=== PATIENT | female | born 1940 | race Caucasian/White ===

== ENCOUNTER → 2017-03-26 | Outpatient (CLI) | payer OTHER ==
--- NOTE | 2017-03-26 15:20 | RAD ---
HISTORY: Dyspnea, COPD Study: Chest two-view Comparison: None Findings: The heart is within normal limits in size. The cj are normal. The lungs are hyperinflated but free of acute alveolar infiltrates. No pleural effusions are identified. The bony thorax is unremarkable . IMPRESSION: Lungs hyperinflated but clear, consistent with COPD Reported By:
== END ==
LOC: RAD 14:49
PROVIDERS: ATTEND Nurse Practitioner Family
DX: R06.09 Other forms of dyspnea (principal); J44.9 Chronic obstructive pulmonary disease, unspecified
CPT/HCPCS: 71020

== ENCOUNTER 2020-09-17 23:48 | Inpatient (IN) ==
[2020-09-18 00:10] VITALS: BMI 21.7
--- NOTE | 2020-09-18 00:50 | DR.FEVERAD ---
HPI Time seen Time Seen by Provider: 09/18/20 00:50 PCP Primary Care Physician: SAMANTA KEMP HPI Comment HPI Comment: PATIENT IS 79YR OLD FEMALE IN ER WITH FEVER, GENERALIZED WEAKNESS AND ANOREXIA TIMES FEW DAYS. WORSE TODAY. HISTORY LUNG CA UNDERGOING CHEMOTHERAPY. LANT TAKEN 09/05/2020. PATIENT IS NOT TAKING HER MEDS FOR PAST FEW WEEKS. PATIENT ALSO HAD LEFT BREAST CA, S/P LT BREAST REMOVAL IN 1991. HAVE ALSO HAD DIARRHEA. SON SAID PATIENT IS NOT EATING. Complaints/Symptoms Chief Complaint Doctor Comments: GENERALIZED WEANESS, FEVER AND ANOREXIA TIMES FEW DAYS. Chief Complaint:: PTS FAMILY REPORTS THAT TODAY PT IS WEAK AND NOT EATING AND IS RUNNING A FEVER AT HOME THAT WAS 103.5 AXILLARY. PT IS ON CHEMO WITH HER LAST CHEMO BEING 2 WEEKS AGO ON 09/05/2020. Self Treatment fo Chief Complaint: NONE COVID-19 Coronavirus risk:travel/contact w/high risk person: No Has patient experienced Coronavirus symptoms: Yes Coronavirus symptoms experienced: Fever Source History Provided: Patient and Family Member Mode of Arrival Mode of Arrival: Wheelchair Timing Onset of Chief Complaint: 09/17/20 Came on: Suddenly Duration Duration: Constant Duration: Days Severity Fever Severity/Quality: greater than 102 F Context Recent: denies Contact exposure to (PATIENT UNDER GOING CHEMOTHRAPY FOR LUNG CANCER.) Symptoms: Fever, Chills, Cough and SOB History of: Immunosuppression Modifying factors Modifying factors: Nothing Associated signs and symptoms Associated signs and symptoms: Myalgia, Abdominal pain and Nausea PMH PMH Past Medical History: Yes Past Medical History: Arthritis, COPD, Coronary Artery Disease, Dyslipidemia, GERD and Hypertension Past Medical History Comment: LUNG CA 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)- IS ON CHEMO HX OF BREAST CA WITH LEFT BREAST REMOVAL IN 1991 Past Surgical History: Yes Surgical History: Angioplasty/Stents Past Surgical History Comment: RIGHT CHEST WALL PORTACATH FOR CHEMO HALF OF THYROID REMOVED LEFT BREAST REMOVAL IN 1991 Family History History of Family Medical Conditions: Yes Family Medical History: Cancer, [place], Coronary Artery Disease and Hypertension Social History Does patient currently use any type of tobacco product: No Have you used tobacco products in the last 12 months: No Type of Tobacco Use: None Does any household member use tobacco: No Alcohol Use: None Do you use any recreational Drugs:: No Lives With: Alone Lives Where: Home Travel Risk Coronavirus risk:travel/contact w/high risk person: No Has patient experienced Coronavirus symptoms: Yes Coronavirus symptoms experienced: Fever Infectious screening In the last 2 months have you had wt loss of >10#?: NO Have you had fever, night sweats or hemotysis?: No Have you traveled outside the country in the last 6 months?: No Isolation: Droplet ROS Review of Systems Constitutional: See HPI, Chills, Fever, Malaise, Weakness, Fatigue and Loss of Appetite Eyes: No Symptoms Reported and See HPI; negative Blurred Vision and Diplopia ENTM: Nose Congestion; negative See HPI and Nose Discharge Respiratoy: See HPI, Moist Cough and Short of Breath; negative Wheezing Cardiovascular: No Symptoms Reported and See HPI Gastrointestinal/Abdominal: No Symptoms Reported, See HPI, Abdominal Pain, Diarrhea and Nausea Genitourinary: No Symptoms Reported and See HPI; negative Dysuria and Hematuria Neurological: See HPI and Weakness; negative Headache and Dizziness Musculoskeletal: See HPI, Back Pain and Muscle Pain Integumentary: No Symptoms Reported and See HPI; negative Change in Color, Rash and Juandice Hematologic/Lymphatic: No Symptoms Reported and See HPI; negative Easy Bruising Endocrine: No Symptoms Reported and See HPI; negative Increased Thirst and Increased Urine Psychiatric: No Symptoms Reported and See HPI All Other Systems: Reviewed and Negative PE Vital Signs Vitals: Temperature 99.8 F Pulse Rate 75 Respiratory Rate 18 Blood Pressure 92/48 O2 Sat by Pulse Oximetry 98 General Limitations: No Limitations General Appearance: Alert and In No Apparent Distress Head Head Exam: Normal Inspection and Atraumatic Eyes Eye exam: Normal Appearance and PERRL; negative Scleral Icterus and Conjunctival Injection ENT ENT Exam: Normal Exam, Normal Oropharynx, Normal External Ear Exam and TM's Normal Bilaterally External Ear Exam: negative Mastoid Tenderness Nose Exam: negative Normal Nose Exam Mouth Exam: negative Normal Inspection, Lip Swelling and Tongue Swelling Teeth Exam: Dental Caries; negative Dental Tenderness # and Gingival Swelling Throat Exam: negative Tonsillar Erythema, Tonsillomegaly and Tonsillar Exudate Neck Neck Exam: Normal Inspection and Trachea Midline; negative Tenderness and Lymphadenopathy Respiratory Respiratory Exam: Normal Lung Sounds Bilat; negative Accessory Muscle Use, Chest Wall Tenderness and Respiratory Distress Respiratory Exam: Bilateral: Wheezing and Bilateral: Rhonchi and Lower: Wheezing and Lower: Rhonchi Cardiovascular Cardiovascular Exam: Regular Rate, Normal Rhythm and Normal Heart Sounds; negative Systolic Murmur and Diastolic Murmur Abdominal Exam Abdominal Exam: Normal Inspection, Normal Bowel Sounds and Soft; negative Tenderness Abdominal Tenderness: Diffuse and Moderate Extremities Extremities Exam: Normal Inspection and Normal Capillary Refill; negative Tenderness, Edema and Calf Tenderness Back Back Exam: Normal Inspection and Paraspinal Tenderness; negative (R) CVA Tenderness and (L) CVA Tenderness Neurologic Neurological Exam: Alert, Oriented X3 and CN II-XII Intact; negative Motor Sensory Deficit Psychiatric Psychiatric Exam: Normal Affect and Normal Mood Skin Skin Exam: Warm, Dry, Intact and Normal Color COURSE Treatment Treatment: TORADOL 15MG IV. NS 1L IV BOLUS, LEVAQUIN 500MG IVPB. VANCOMYCIN 1GM IVBP. NS 1L IV BOLUS THEN 125CC/HR. BP LOW AFTER FLUID RESUSCITATION. PLACE ON LEVOPHED. BP IMPROVED, Consultation Consultation Comments: DISCUSS PATIENT WITH ONCOLOGIST DR. MAYA OJEDA. PATIENT TO BE HOSPITALIZE HERE [facility]. SON WANTS PATIENT TO BE ADMITTED HERE. DR. LACY, [employer] DR AND PATIENTS PCP WILL ADMIT PATIENT. Education/Counseling Education/Counseling: Patient and Family Educated On: Diagnosis ROR Labs Reviewed Laboratory Results Reviewed?: Yes Result Diagrams: 09/18/20 01:05 09/18/20 01:05 Laboratory: WBC 2.3 X10^3/uL (3.6-10.0) L 09/18/20 01:05 RBC 2.72 X10^6/uL (3.5-5.4) L 09/18/20 01:05 Hgb 8.1 g/dL (12.0-16.0) L 09/18/20 01:05 Hct 23.5 % (36.0-47.0) L 09/18/20 01:05 MCV 86.5 fL (80.0-100.0) 09/18/20 01:05 MCH 29.6 pg (27.0-34.0) 09/18/20 01:05 MCHC 34.3 g/dL (33.0-35.0) 09/18/20 01:05 RDW 16.4 % (11.6-16.5) 09/18/20 01:05 Plt Count 58 X10^3/uL (150.0-450.0) L 09/18/20 01:05 Plt Count Comment Decreased (ADEQUATE) A 09/18/20 01:05 MPV 8.0 fL (7.4-11.0) 09/18/20 01:05 Neut % (Auto) 79.6 % (42.0-75.0) H 09/18/20 01:05 Lymph % (Auto) 10.7 % (21.0-51.0) L 09/18/20 01:05 [place] % (Auto) 9.4 % (0.0-13.0) 09/18/20 01:05 Eos % (Auto) 0.1 % (0.9-2.9) L 09/18/20 01:05 Baso % (Auto) 0.2 % (0.2-1.0) 09/18/20 01:05 Neut # (Auto) 1.8 x10^3/uL (2.2-4.8) L 09/18/20 01:05 Lymph # (Auto) 0.2 X10^3/uL (1.3-2.9) L 09/18/20 01:05 [place] # (Auto) 0.2 x10^3/uL (0.3-0.8) L 09/18/20 01:05 Eos # (Auto) 0.0 x10^3/uL (0.0-0.2) 09/18/20 01:05 Baso # (Auto) 0.0 X10^3/uL (0.0-0.1) 09/18/20 01:05 Absolute Nucleated RBC 0.1 /100WBC 09/18/20 01:05 Total Counted 100 09/18/20 01:05 Neutrophils % (Manual) 86 % (39-76) H 09/18/20 01:05 Lymphocytes % (Manual) 14 % (13-43) 09/18/20 01:05 Plt Morphology Comment Normal (NORMAL) 09/18/20 01:05 RBC Morphology Normal (NORMAL) 09/18/20 01:05 PT 15.8 SECONDS (11.8-14.3) 09/18/20 02:50 INR Target Range - 09/18/20 02:50 INR 1.29 (0.8-1.3) 09/18/20 02:50 APTT 39.4 SECONDS (22.9-36.5) H 09/18/20 02:50 PTT Comment - 09/18/20 02:50 Sodium 137 mmol/L (136-145) 09/18/20 01:05 Corrected Sodium TNP 09/18/20 01:05 Potassium 3.8 mmol/L (3.5-5.1) 09/18/20 01:05 Chloride 101 mmol/L (98-107) 09/18/20 01:05 Carbon Dioxide 24.4 mmol/L (21-32) 09/18/20 01:05 BUN 14 mg/dL (7-18) 09/18/20 01:05 Creatinine 1.09 mg/dL (0.55-1.02) H 09/18/20 01:05 Est GFR (MDRD) Af Amer > 60 (>60) 09/18/20 01:05 Est GFR (MDRD) Non-Af 52 (>60) L 09/18/20 01:05 Glucose 100 mg/dL (65-99) H 09/18/20 01:05 Lactic Acid 0.8 mmol/L (0.4-2.0) 09/18/20 02:50 Calcium 8.5 mg/dL (8.5-10.1) 09/18/20 01:05 Corrected Calcium 9.1 mg/dL (8.5-10.1) 09/18/20 01:05 Total Bilirubin 0.70 mg/dL (0.2-1.0) 09/18/20 01:05 AST 217 Units/L (15-37) H 09/18/20 01:05 ALT 300 Units/L (12-78) H 09/18/20 01:05 Alkaline Phosphatase 165 Units/L (46-116) H 09/18/20 01:05 Total Protein 6.9 g/dL (6.4-8.2) 09/18/20 01:05 Albumin 3.3 g/dL (3.4-5.0) L 09/18/20 01:05 Globulin 3.6 g/dL (2.5-4.5) 09/18/20 01:05 Albumin/Globulin Ratio 0.9 Ratio (1.1-2.1) L 09/18/20 01:05 Specimen Type Catherized urine 09/18/20 02:26 Urine Color Yellow (YELLOW) 09/18/20 02:26 Urine Appearance Cloudy (CLEAR) 09/18/20 02:26 Urine pH 6.0 (5.0 - 8.0) 09/18/20 02:26 Ur Specific [place] 1.025 (1.000-1.030) 09/18/20 02:26 Urine Protein 3+ (NEGATIVE) 09/18/20 02:26 Urine Glucose (UA) Negative (NEGATIVE) 09/18/20 02:26 Urine Ketones Negative (NEGATIVE) 09/18/20 02:26 Urine Occult Blood 4+ (NEGATIVE) 09/18/20 02:26 Urine Nitrite Negative (NEGATIVE) 09/18/20 02:26 Urine Bilirubin 1+ (NEGATIVE) 09/18/20 02:26 Urine Urobilinogen 1+ (NORMAL) 09/18/20 02:26 Ur Leukocyte Esterase 3+ (NEGATIVE) 09/18/20 02:26 Urine RBC 5-10 /HPF (0-3) A 09/18/20 02:26 Urine WBC Tntc /HPF (0-5) A 09/18/20 02:26 Ur Squamous Epith Cells Few /HPF (NEGATIVE) 09/18/20 02:26 Urine Bacteria 2+ /HPF (NEGATIVE) 09/18/20 02:26 Ur Culture Indicated? Yes/culture set up 09/18/20 02:26 SARS-CoV-2 (PCR) Negative (NEGATIVE) 09/18/20 04:31 XRAY XRAY Interpreted by: Radiologist (REPORT NOTED AND DISCUSSED WITH PATIENT.) and Self Opioid Opioid Risk Tool Age (Cory box if 16-45): No History of Preadolescent Sexual Abuse: No Total: 0 Total Score Risk Category: Low Risk Copyright: Dilan FLORES predicting aberrant behaviors Diagnosis Discharge Problem: Pancytopenia, Acute dehydration, Sepsis secondary to UTI Neutropenia Qualifiers: Neutropenia type: due to infection Qualified Code(s): D70.3 - Neutropenia due to infection Hypotension Qualifiers: Hypotension type: unspecified hypotension type Qualified Code(s): I95.9 - Hypotension, unspecified Hypothermia Qualifiers: Encounter type: initial encounter Qualified Code(s): T68.XXXA - Hypothermia, initial encounter Instructions Forms: Precautions for COVID19 Patient Portal Social Distancing
[2020-09-18 01:36] LABS: BASOPHILS % (AUTO) 0.2 % (0.2-1.0); EOSINOPHILS % (AUTO) 0.1 % (0.9-2.9); HEMATOCRIT 23.5 % (36.0-47.0); HEMOGLOBIN 8.1 g/dL (12.0-16.0); LYMPHOCYTES # (AUTO) 0.2 X10^3/uL (1.3-2.9); LYMPHOCYTES % (AUTO) 10.7 % (21.0-51.0); MEAN CORPUSCULAR HEMOGLOBIN 29.6 pg (27.0-34.0); MEAN CORPUSCULAR HGB CONC 34.3 g/dL (33.0-35.0); MEAN CORPUSCULAR VOLUME 86.5 fL (80.0-100.0); MONOCYTES # (AUTO) 0.2 x10^3/uL (0.3-0.8); MONOCYTES % (AUTO) 9.4 % (0.0-13.0); NEUTROPHILS # (AUTO) 1.8 x10^3/uL (2.2-4.8); NEUTROPHILS % (AUTO) 79.6 % (42.0-75.0); PLATELET COUNT 58 X10^3/uL (150.0-450.0); RED BLOOD COUNT 2.72 X10^6/uL (3.5-5.4); RED CELL DISTRIBUTION WIDTH 16.4 % (11.6-16.5); WHITE BLOOD COUNT 2.3 X10^3/uL (3.6-10.0)
[2020-09-18 01:44] LABS: ALANINE AMINOTRANSFERASE 300 Units/L (12-78); ALBUMIN 3.3 g/dL (3.4-5.0); ALKALINE PHOSPHATASE 165 Units/L (46-116); ASPARTATE AMINO TRANSFERASE 217 Units/L (15-37); BLOOD UREA NITROGEN 14 mg/dL (7-18); CALCIUM 8.5 mg/dL (8.5-10.1); CARBON DIOXIDE 24.4 mmol/L (21-32); CHLORIDE 101 mmol/L (98-107); COR CA(FOR HYPOALB) 9.1 mg/dL (8.5-10.1); CREATININE 1.09 mg/dL (0.55-1.02); SODIUM 137 mmol/L (136-145); TOTAL PROTEIN 6.9 g/dL (6.4-8.2); eGFR NON BLACK RACES 52 (>60)
[2020-09-18] MEDS ORDERED: TORADOL 15 MG VIAL IVP ONE (02:07)
[2020-09-18] MEDS ORDERED: TORADOL 15 MG VIAL ONE (02:08)
--- NOTE | 2020-09-18 02:10 | RAD ---
HISTORYPTS FAMILY REPORTS THAT TODAY PT IS WEAK AND NOT EATING AND IS RUNNING A FEVER AT HOME THAT WAS 103.5 AXILLARY. PT IS ON CHEMO WITH HER LAST CHEMO BEING 2 WEEKS AGO ON 09/05/2020. PTS FAMILY (NIECE) STATES THAT PT HAS NOT BEEN TAKING H TRUNCATED ...STUDYCHEST, 1 [id number] trachea is midline. The cardiac silhouette is mildly enlarged. The right Port-A-Cath tip in SVC. Ill-defined mass anterior the right hilum again noted. The lungs are clear of acute consolidation no pleural effusion or pneumothorax.. The lungs are clear without focal infiltrate or effusion. The bony thorax is unremarkable.IMPRESSIONMild cardiomegalyIll-defined mass anterior to the right hilum again noted.Electronically signed by: Jacob Mcfarlane (Sep 18, 2020 02:09:15)
[2020-09-18 03:27] LABS: BILIRUBIN,URINE 1+ (NEGATIVE); BLOOD/HEMOGLOBIN,URINE 4+ (NEGATIVE); GLUCOSE, URINE NEGATIVE (NEGATIVE); KETONES,URINE NEGATIVE (NEGATIVE); LEUKOCYTE ESTERASE ,URINE 3+ (NEGATIVE); NITRITES,URINE NEGATIVE (NEGATIVE); PROTEIN,URINE 3+ (NEGATIVE); UROBILINOGEN,URINE 1+ (NORMAL)
[2020-09-18 03:33] LABS: APPEARANCE,URINE CLOUDY (CLEAR); COLOR,URINE YELLOW (YELLOW)
[2020-09-18 03:34] LABS: BACTERIA,URINE 2+ /HPF (NEGATIVE); SQUAMOUS EPITHELIAL CELL,UR FEW /HPF (NEGATIVE)
[2020-09-18] MEDS ORDERED: NS 1000 ML 1,000 ML IV ONE ×2 (03:47→05:32)
[2020-09-18] MEDS ORDERED: NS 1000 ML 1,000 ML ONE ×3 (03:50→05:32)
[2020-09-18] MEDS ORDERED: LEVAQUIN PREMIX IV 750 MG 0 MG/0 ML BAG IV ONE (03:51)
[2020-09-18] MEDS: LEVAQUIN PREMIX IV 750 MG 750 MG/150 ML BAG IV ONE ×2 (04:01→04:17)
[2020-09-18] MEDS ORDERED: LEVAQUIN PREMIX IV 500 MG 500 MG/100 ML BAG IV ONE ×2 (04:14→04:16)
[2020-09-18] MEDS ORDERED: ZOSYN VIAL 4.5 GRAMS IV ONE (04:14)
[2020-09-18] MEDS ORDERED: NS 100 ML IV + SPIKE MINIBAG* 0 ML IV ONE (04:15)
[2020-09-18] MEDS ORDERED: ZOSYN VIAL 4.5 GRAMS 4.5 G in NS 100 ML IV + SPIKE MINIBAG* 100 ML IV ONE (04:15)
[2020-09-18 04:35] LABS: PLATELET MORPHOLOGY COMMENT NORMAL (NORMAL)
[2020-09-18] MEDS: NS 1000 ML 1,000 ML IV SCH ×2 (05:11→15:06)
[2020-09-18] MEDS ORDERED: LEVOPHED INJ ONE (06:05)
[2020-09-18] MEDS ORDERED: D5W 250 ML IV 250 ML IV ONE (06:06)
[2020-09-18] MEDS ORDERED: LEVOPHED INJ 8 MG in D5W 250 ML IV 242 ML IV PRN (06:10)
[2020-09-18] MEDS ORDERED: VANCOMYCIN HCL ONE (07:34)
[2020-09-18] MEDS ORDERED: NS 250 ML IV 250 ML IV ONE (07:34)
[2020-09-18] MEDS: VANCOMYCIN IV *PREMIX 1 G/200 ML BAG 1 G/200 ML PIGGYBACK IV SCH ×3 (07:41→21:31)
[2020-09-18] MEDS ORDERED: PHARMACY CONSULT - VANCOMYCIN XX SCH (08:00)
[2020-09-18] MEDS ORDERED: ZOFRAN INJ 4 MG VIAL IVP PRN (08:25)
[2020-09-18] MEDS ORDERED: DUONEB 0.5 MG/3 MG (3 mL) NEB SCH (09:00)
[2020-09-18] MEDS ORDERED: PULMICORT NEB TX 0.5 MG NEB SCH (09:00)
[2020-09-18] MEDS ORDERED: PATIENT'S HOME MEDICATION (Fluticasone-Umeclidin-Vilanter [Trelegy Ellipta] 100-62.5-25 mc IN SCH (09:00)
[2020-09-18] MEDS: FOLIC ACID TAB 1 MG PO SCH (10:46)
[2020-09-18] MEDS: PLAVIX PO SCH (10:46)
[2020-09-18] MEDS: PROTONIX TAB 40 MG PO SCH ×2 (10:46→21:32)
[2020-09-18] MEDS: VITAMIN D3 125 mcg (5,000 UNITS) PO SCH (10:47)
[2020-09-18] MEDS: VITAMIN C PO SCH (10:47)
--- NOTE | 2020-09-18 11:22 | DR.FEVERAD ---
HPI Time seen Time Seen by Provider: 09/18/20 00:50 PCP Primary Care Physician: SAMANTA KEMP Complaints/Symptoms Chief Complaint:: PTS FAMILY REPORTS THAT TODAY PT IS WEAK AND NOT EATING AND IS RUNNING A FEVER AT HOME THAT WAS 103.5 AXILLARY. PT IS ON CHEMO WITH HER LAST CHEMO BEING 2 WEEKS AGO ON 09/05/2020. 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)- IS ON CHEMO HX OF BREAST CA WITH LEFT BREAST REMOVAL IN 1991 Past Surgical History: Yes Surgical History: Angioplasty/Stents Past Surgical History Comment: RIGHT CHEST WALL PORTACATH FOR CHEMO HALF OF THYROID REMOVED LEFT BREAST REMOVAL IN 1991 Family History History of Family Medical Conditions: Yes Family Medical History: Cancer, [place], Coronary Artery Disease and Hypertension Social History Does patient currently use any type of tobacco product: No Have you used tobacco products in the last 12 months: No Type of Tobacco Use: None Does any household member use tobacco: No Alcohol Use: None Do you use any recreational Drugs:: No Lives With: Alone Lives Where: Home Travel Risk Coronavirus risk:travel/contact w/high risk person: No Has patient experienced Coronavirus symptoms: Yes Coronavirus symptoms experienced: Fever Infectious screening In the last 2 months have you had wt loss of >10#?: NO Have you had fever, night sweats or hemotysis?: No Have you traveled outside the country in the last 6 months?: No Isolation: Droplet PE Vital Signs Vitals: Temperature 99.8 F Pulse Rate 75 Respiratory Rate 18 Blood Pressure 92/48 O2 Sat by Pulse Oximetry 98 ROR Labs Reviewed Result Diagrams: 09/18/20 01:05 09/18/20 01:05 Laboratory: WBC 2.3 X10^3/uL (3.6-10.0) L 09/18/20 01:05 RBC 2.72 X10^6/uL (3.5-5.4) L 09/18/20 01:05 Hgb 8.1 g/dL (12.0-16.0) L 09/18/20 01:05 Hct 23.5 % (36.0-47.0) L 09/18/20 01:05 MCV 86.5 fL (80.0-100.0) 09/18/20 01:05 MCH 29.6 pg (27.0-34.0) 09/18/20 01:05 MCHC 34.3 g/dL (33.0-35.0) 09/18/20 01:05 RDW 16.4 % (11.6-16.5) 09/18/20 01:05 Plt Count 58 X10^3/uL (150.0-450.0) L 09/18/20 01:05 Plt Count Comment Decreased (ADEQUATE) A 09/18/20 01:05 MPV 8.0 fL (7.4-11.0) 09/18/20 01:05 Neut % (Auto) 79.6 % (42.0-75.0) H 09/18/20 01:05 Lymph % (Auto) 10.7 % (21.0-51.0) L 09/18/20 01:05 [place] % (Auto) 9.4 % (0.0-13.0) 09/18/20 01:05 Eos % (Auto) 0.1 % (0.9-2.9) L 09/18/20 01:05 Baso % (Auto) 0.2 % (0.2-1.0) 09/18/20 01:05 Neut # (Auto) 1.8 x10^3/uL (2.2-4.8) L 09/18/20 01:05 Lymph # (Auto) 0.2 X10^3/uL (1.3-2.9) L 09/18/20 01:05 [place] # (Auto) 0.2 x10^3/uL (0.3-0.8) L 09/18/20 01:05 Eos # (Auto) 0.0 x10^3/uL (0.0-0.2) 09/18/20 01:05 Baso # (Auto) 0.0 X10^3/uL (0.0-0.1) 09/18/20 01:05 Absolute Nucleated RBC 0.1 /100WBC 09/18/20 01:05 Total Counted 100 09/18/20 01:05 Neutrophils % (Manual) 86 % (39-76) H 09/18/20 01:05 Lymphocytes % (Manual) 14 % (13-43) 09/18/20 01:05 Plt Morphology Comment Normal (NORMAL) 09/18/20 01:05 RBC Morphology Normal (NORMAL) 09/18/20 01:05 PT 15.8 SECONDS (11.8-14.3) 09/18/20 02:50 INR Target Range - 09/18/20 02:50 INR 1.29 (0.8-1.3) 09/18/20 02:50 APTT 39.4 SECONDS (22.9-36.5) H 09/18/20 02:50 PTT Comment - 09/18/20 02:50 Sodium 137 mmol/L (136-145) 09/18/20 01:05 Corrected Sodium TNP 09/18/20 01:05 Potassium 3.8 mmol/L (3.5-5.1) 09/18/20 01:05 Chloride 101 mmol/L (98-107) 09/18/20 01:05 Carbon Dioxide 24.4 mmol/L (21-32) 09/18/20 01:05 BUN 14 mg/dL (7-18) 09/18/20 01:05 Creatinine 1.09 mg/dL (0.55-1.02) H 09/18/20 01:05 Est GFR (MDRD) Af Amer > 60 (>60) 09/18/20 01:05 Est GFR (MDRD) Non-Af 52 (>60) L 09/18/20 01:05 Glucose 100 mg/dL (65-99) H 09/18/20 01:05 Lactic Acid 0.8 mmol/L (0.4-2.0) 09/18/20 02:50 Calcium 8.5 mg/dL (8.5-10.1) 09/18/20 01:05 Corrected Calcium 9.1 mg/dL (8.5-10.1) 09/18/20 01:05 Total Bilirubin 0.70 mg/dL (0.2-1.0) 09/18/20 01:05 AST 217 Units/L (15-37) H 09/18/20 01:05 ALT 300 Units/L (12-78) H 09/18/20 01:05 Alkaline Phosphatase 165 Units/L (46-116) H 09/18/20 01:05 Total Protein 6.9 g/dL (6.4-8.2) 09/18/20 01:05 Albumin 3.3 g/dL (3.4-5.0) L 09/18/20 01:05 Globulin 3.6 g/dL (2.5-4.5) 09/18/20 01:05 Albumin/Globulin Ratio 0.9 Ratio (1.1-2.1) L 09/18/20 01:05 Specimen Type Catherized urine 09/18/20 02:26 Urine Color Yellow (YELLOW) 09/18/20 02:26 Urine Appearance Cloudy (CLEAR) 09/18/20 02:26 Urine pH 6.0 (5.0 - 8.0) 09/18/20 02:26 Ur Specific [place] 1.025 (1.000-1.030) 09/18/20 02:26 Urine Protein 3+ (NEGATIVE) 09/18/20 02:26 Urine Glucose (UA) Negative (NEGATIVE) 09/18/20 02:26 Urine Ketones Negative (NEGATIVE) 09/18/20 02:26 Urine Occult Blood 4+ (NEGATIVE) 09/18/20 02:26 Urine Nitrite Negative (NEGATIVE) 09/18/20 02:26 Urine Bilirubin 1+ (NEGATIVE) 09/18/20 02:26 Urine Urobilinogen 1+ (NORMAL) 09/18/20 02:26 Ur Leukocyte Esterase 3+ (NEGATIVE) 09/18/20 02:26 Urine RBC 5-10 /HPF (0-3) A 09/18/20 02:26 Urine WBC Tntc /HPF (0-5) A 09/18/20 02:26 Ur Squamous Epith Cells Few /HPF (NEGATIVE) 09/18/20 02:26 Urine Bacteria 2+ /HPF (NEGATIVE) 09/18/20 02:26 Ur Culture Indicated? Yes/culture set up 09/18/20 02:26 SARS-CoV-2 (PCR) Negative (NEGATIVE) 09/18/20 04:31 Opioid Opioid Risk Tool Age (Cory box if 16-45): No History of Preadolescent Sexual Abuse: No Total: 0 Total Score Risk Category: Low Risk Copyright: Dilan FLORES predicting aberrant behaviors Diagnosis Discharge Problem: Pancytopenia, Acute dehydration, Sepsis secondary to UTI Neutropenia Qualifiers: Neutropenia type: due to infection Qualified Code(s): D70.3 - Neutropenia due to infection Hypotension Qualifiers: Hypotension type: unspecified hypotension type Qualified Code(s): I95.9 - Hypotension, unspecified Hypothermia Qualifiers: Encounter type: initial encounter Qualified Code(s): T68.XXXA - Hypothermia, initial encounter Instructions Forms: Precautions for COVID19 Patient Portal Social Distancing
[2020-09-18] MEDS ORDERED: CONSULT PHARMACY - ANTIBIOTIC XX SCH (16:00)
[2020-09-18] MEDS: TOBRAMYCIN SULFATE 80 MG in NS 100 ML IV 98 ML IV SCH (16:41)
--- NOTE | 2020-09-18 18:40 | DR.H&P ---
H&P - History & Physical for Day of: H&P Date: 09/18/20 - Chief Complaint Chief Complaint: FEVER, WEAKNESS, DEHYDRATION - History of Present Illness History of Present Illness: PT IS 79 WF ER ADMISSION WITH CO FEVER, WEAKNESS, DEHYDRATION. PT HAS PMH OF CAD, COPD AND LUNG CANCER. PT IS CURRENTLY ON CHEMOTHERAPY. PT WAS FEBRILE IN ER. PT DENIES ANY KNOWN COVID. - Past Medical History Past Medical History: Coronary Artery Disease, Hypertension, Dyslipidemia, COPD, GERD, Arthritis - Past Surgical History Surgical History: Angioplasty/Stents - Family History Family Medical History: Cancer, [place], Coronary Artery Disease, Hypertension - Social History Does patient currently use any type of tobacco product: No Have you used tobacco products in the last 12 months: No Type of Tobacco Use: None How many years tobacco product used: 30 Does any household member use tobacco: No Alcohol Use: None Drug Use: None - Medications Home Medications: Sulfa (Sulfonamide Antibiotics) [SULFA] Allergy (Verified 09/18/20 00:10) Penicillins Adverse Reaction (Verified 09/18/20 00:10) CONTINUE taking the following medications amlodipine 2.5 mg PO DAILY 09/18/20 [History] ascorbic acid (vitamin C) 1 g PO DAILY 09/18/20 [History] cholecalciferol (vitamin D3) 125 mcg PO DAILY 09/18/20 [History] clopidogrel 75 mg PO DAILY 09/18/20 [History] [id number] [Trelegy Ellipta] 1 inh INHALATION BID 09/18/20 [History] folic acid 1 mg PO DAILY 09/18/20 [History] ondansetron HCl 8 mg PO Q8H PRN 09/18/20 [History] pantoprazole 40 mg PO BID 09/18/20 [History] prochlorperazine maleate 10 mg PO Q8H PRN 09/18/20 [History] simvastatin 20 mg PO DAILY 09/18/20 [History] - Review of Systems Constitutional: Fever, Chills, Weakness, Malaise Eyes: No Symptoms Reported ENT: No Symptoms Reported Respiratory: Cough, Shortness of Breath, Wheezing Cardiovascular: No Symptoms Reported Gastrointestinal: Nausea Genitourinary: No Symptoms Reported Musculoskeletal: No Symptoms Reported Skin: No Symptoms Reported Neurological: Weakness - Physical Exam Vital Signs: Temperature 100 F Pulse Rate [Left Radial] 100 Pulse Rate 100 Respiratory Rate 20 Blood Pressure [Right Arm] 121/62 Blood Pressure 141/61 O2 Sat by Pulse Oximetry 92 Oriented: Normal Eyes: Normal Ear: Normal Nose: Normal Throat: Normal Respiratory: Rhonchi Throughout, RLL Diminished, LLL Diminished Cardiovascular: Normal : Dysuria Auscultation: Bowel Sounds: Normal Palpation: Normal Tenderness: Normal Skin: Decreased [place] Musculoskeletal: Back:Thoracic, Back:Lumbar Psychiatric: Anxiety Mood Description: Anxious Affect: Anxious Speech Pattern: Clear, Appropriate - Assessment/Plan (1) Sepsis Status: Acute Plan: ADMIT, REVERSE ISOLATION DUE TO CHEMO THERAPY PT. BC AND UC ON ADMISSION, CARDIAC MONITORING. GRIMALDO CATH STRICT I&OS. IV ABTX THERAPY, CXR ON ADMISSION, RESP THERAPY. COVID 19 ON ADMISSION (2) Fever Status: Acute (3) COPD (chronic obstructive pulmonary disease) Status: Acute (4) CAD (coronary artery disease) Status: Acute (5) Neutropenia Qualifiers: Neutropenia type: due to infection Qualified Code(s): D70.3 - Neutropenia due to infection Status: Acute (6) Pancytopenia Status: Acute (7) Hypotension Qualifiers: Hypotension type: unspecified hypotension type Qualified Code(s): I95.9 - Hypotension, unspecified Status: Acute - Allergies Allergies/Adverse Reactions: Allergies Allergy/AdvReac Type Severity Reaction Status Date / Time Sulfa (Sulfonamide Allergy Verified 09/18/20 00:10 Antibiotics) [SULFA] Penicillins AdvReac Verified 09/18/20 00:10
[2020-09-18] MEDS: ZOCOR TAB 20 MG PO SCH (21:17)
[2020-09-19] MEDS: TYLENOL 325 MG TAB PO PRN ×2 (00:15→12:50)
[2020-09-19] MEDS: TOBRAMYCIN SULFATE 80 MG in NS 100 ML IV 98 ML IV SCH ×4 (00:30→21:27)
[2020-09-19] MEDS: NS 1000 ML 1,000 ML IV SCH ×3 (03:03→18:34)
[2020-09-19 06:52] LABS: BASOPHILS % (AUTO) 0.2 % (0.2-1.0); EOSINOPHILS % (AUTO) 2.9 % (0.9-2.9); HEMATOCRIT 20.5 % (36.0-47.0); LYMPHOCYTES # (AUTO) 0.3 X10^3/uL (1.3-2.9); LYMPHOCYTES % (AUTO) 27.3 % (21.0-51.0); MEAN CORPUSCULAR HEMOGLOBIN 29.2 pg (27.0-34.0); MEAN CORPUSCULAR VOLUME 88.4 fL (80.0-100.0); MEAN PLATELET VOLUME 8.2 fL (7.4-11.0); MONOCYTES # (AUTO) 0.3 x10^3/uL (0.3-0.8); MONOCYTES % (AUTO) 22.6 % (0.0-13.0); NEUTROPHILS # (AUTO) 0.5 x10^3/uL (2.2-4.8); PLATELET COUNT 46 X10^3/uL (150.0-450.0); RED BLOOD COUNT 2.32 X10^6/uL (3.5-5.4)
[2020-09-19 07:04] LABS: ALANINE AMINOTRANSFERASE 149 Units/L (12-78); ALBUMIN 2.4 g/dL (3.4-5.0); ALKALINE PHOSPHATASE 102 Units/L (46-116); ASPARTATE AMINO TRANSFERASE 79 Units/L (15-37); BLOOD UREA NITROGEN 8 mg/dL (7-18); CALCIUM 8.1 mg/dL (8.5-10.1); CARBON DIOXIDE 20.7 mmol/L (21-32); CHLORIDE 109 mmol/L (98-107); CKMB % 0.4 % (<4); COR CA(FOR HYPOALB) 9.4 mg/dL (8.5-10.1); CREATINE KINASE 247 Units/L (26-192); CREATINE KINASE MB < 1.0 ng/mL (0-4.0); CREATININE 0.81 mg/dL (0.55-1.02); MAGNESIUM 1.6 mg/dL (1.7-2.9); SODIUM 141 mmol/L (136-145); TOTAL PROTEIN 5.4 g/dL (6.4-8.2); TROPONIN I 0.17 ng/mL (0-1.5); eGFR NON BLACK RACES > 60 (>60)
[2020-09-19 07:17] LABS: WHITE BLOOD COUNT 1.1 X10^3/uL (3.6-10.0)
[2020-09-19 07:18] LABS: HEMOGLOBIN 6.8 g/dL (12.0-16.0)
[2020-09-19 07:44] LABS: BAND NEUTROPHILS % 2 % (0-10)
[2020-09-19 07:45] LABS: PLATELET MORPHOLOGY COMMENT NORMAL (NORMAL)
[2020-09-19] MEDS ORDERED: POTASSIUM CHLORIDE LIQ 20 MEQ UDC PO PRN (08:05)
[2020-09-19] MEDS ORDERED: KLOR-CON PO PRN (08:05)
[2020-09-19] MEDS ORDERED: MICRO K EXTEN CAP 10 MEQ PO PRN (08:05)
[2020-09-19] MEDS: MAGNESIUM SULFATE 1 GRAM/100 mL PREMIX 1 GM/100 ML BAG IV PRN ×2 (09:00→10:15)
[2020-09-19] MEDS: FOLIC ACID TAB 1 MG PO SCH (09:19)
[2020-09-19] MEDS: PLAVIX PO SCH (09:21)
[2020-09-19] MEDS: K-DUR TAB 20 MEQ PO PRN (09:22)
[2020-09-19] MEDS: PROTONIX TAB 40 MG PO SCH ×2 (09:23→21:26)
[2020-09-19] MEDS: VITAMIN D3 125 mcg (5,000 UNITS) PO SCH (09:24)
[2020-09-19] MEDS: VITAMIN C PO SCH (09:24)
[2020-09-19] MEDS ORDERED: DUONEB 0.5 MG/3 MG (3 mL) NEB SCH (11:00)
[2020-09-19] MEDS ORDERED: PULMICORT NEB TX 0.5 MG NEB SCH (11:00)
[2020-09-19] MEDS: LEVAQUIN PREMIX IV 500 MG 500 MG/100 ML BAG IV SCH (12:00)
[2020-09-19] MEDS ORDERED: PHARMACY COMMENT IV NR ×3 (12:30→20:30)
[2020-09-19 14:39] LABS: CREATININE 0.79 mg/dL (0.55-1.02)
[2020-09-19] MEDS: ZOCOR TAB 20 MG PO SCH (21:26)
[2020-09-20] MEDS: NS 1000 ML 1,000 ML IV SCH ×4 (05:34→23:14)
[2020-09-20] MEDS: TOBRAMYCIN SULFATE 80 MG in NS 100 ML IV 98 ML IV SCH ×4 (05:34→23:16)
[2020-09-20 06:33] LABS: BASOPHILS % (AUTO) 0.4 % (0.2-1.0); HEMATOCRIT 20.3 % (36.0-47.0); LYMPHOCYTES # (AUTO) 0.4 X10^3/uL (1.3-2.9); LYMPHOCYTES % (AUTO) 34.7 % (21.0-51.0); MEAN CORPUSCULAR HEMOGLOBIN 29.5 pg (27.0-34.0); MEAN CORPUSCULAR HGB CONC 34.3 g/dL (33.0-35.0); MEAN CORPUSCULAR VOLUME 86.1 fL (80.0-100.0); MONOCYTES # (AUTO) 0.3 x10^3/uL (0.3-0.8); NEUTROPHILS # (AUTO) 0.3 x10^3/uL (2.2-4.8); NEUTROPHILS % (AUTO) 31.9 % (42.0-75.0); PLATELET COUNT 81 X10^3/uL (150.0-450.0); RED BLOOD COUNT 2.36 X10^6/uL (3.5-5.4); RED CELL DISTRIBUTION WIDTH 16.7 % (11.6-16.5)
[2020-09-20 06:42] LABS: ALANINE AMINOTRANSFERASE 115 Units/L (12-78); ALBUMIN 2.5 g/dL (3.4-5.0); ALKALINE PHOSPHATASE 100 Units/L (46-116); ASPARTATE AMINO TRANSFERASE 54 Units/L (15-37); BLOOD UREA NITROGEN 6 mg/dL (7-18); CALCIUM 8.4 mg/dL (8.5-10.1); CARBON DIOXIDE 25.6 mmol/L (21-32); CHLORIDE 106 mmol/L (98-107); COR CA(FOR HYPOALB) 9.6 mg/dL (8.5-10.1); CREATININE 0.82 mg/dL (0.55-1.02); MAGNESIUM 1.6 mg/dL (1.7-2.9); SODIUM 141 mmol/L (136-145); TOTAL PROTEIN 5.7 g/dL (6.4-8.2); eGFR NON BLACK RACES > 60 (>60)
[2020-09-20 06:43] LABS: WHITE BLOOD COUNT 1.1 X10^3/uL (3.6-10.0)
[2020-09-20 07:25] LABS: PLATELET MORPHOLOGY COMMENT NORMAL (NORMAL)
[2020-09-20] MEDS: FOLIC ACID TAB 1 MG PO SCH (09:18)
[2020-09-20] MEDS: VITAMIN D3 125 mcg (5,000 UNITS) PO SCH (09:19)
[2020-09-20] MEDS: PLAVIX PO SCH (09:20)
[2020-09-20] MEDS: VITAMIN C PO SCH (09:20)
[2020-09-20] MEDS: PROTONIX TAB 40 MG PO SCH ×2 (09:20→21:15)
[2020-09-20] MEDS: LEVAQUIN PREMIX IV 500 MG 500 MG/100 ML BAG IV SCH (09:21)
--- NOTE | 2020-09-20 10:08 | RAD ---
HISTORYCAD, CHF, LUNG CA, breast cancerSTUDYCHEST x-ray, 1 VIEWCOMPARISONX-ray 09/18/2020FINDINGSRight Port-A-Cath terminates in the region of the mid SVC. There is persistent prominence of the right hilum. This is concerning for malignancy. Possible new small left pleural effusion. Heart is normal in size. No pneumothorax is seen. Probable COPD changes are present.IMPRESSIONPersistent prominence of the right hilum may be mass lesion.Possible new small left pleural effusion.Electronically signed by: Iraj Lamar (Sep 20, 2020 10:06:15)
[2020-09-20] MEDS: MAGNESIUM SULFATE 1 GRAM/100 mL PREMIX 1 GM/100 ML BAG IV PRN ×2 (11:47→13:31)
[2020-09-20 16:57] LABS: HEMATOCRIT 20.6 % (36.0-47.0)
[2020-09-20] MEDS: K-DUR TAB 20 MEQ PO PRN (18:12)
[2020-09-20] MEDS: ZOCOR TAB 20 MG PO SCH (21:15)
[2020-09-20] MEDS ORDERED: ROBITUSSIN DM ONE (21:48)
[2020-09-20] MEDS: ROBITUSSIN DM PO PRN (21:55)
[2020-09-20 22:00] LABS: CREATININE 0.88 mg/dL (0.55-1.02); TOBRAMYCIN,TROUGH 1.2 ug/mL (0-2)
[2020-09-21] MEDS: TOBRAMYCIN SULFATE 80 MG in NS 100 ML IV 98 ML IV SCH ×2 (05:56→13:08)
[2020-09-21 06:11] LABS: BASOPHILS % (AUTO) 0.4 % (0.2-1.0); EOSINOPHILS # (AUTO) 0.1 x10^3/uL (0.0-0.2); LYMPHOCYTES # (AUTO) 0.4 X10^3/uL (1.3-2.9); LYMPHOCYTES % (AUTO) 29.6 % (21.0-51.0); MEAN CORPUSCULAR HEMOGLOBIN 29.4 pg (27.0-34.0); MEAN CORPUSCULAR HGB CONC 33.8 g/dL (33.0-35.0); MEAN PLATELET VOLUME 7.9 fL (7.4-11.0); MONOCYTES # (AUTO) 0.5 x10^3/uL (0.3-0.8); MONOCYTES % (AUTO) 30.4 % (0.0-13.0); NEUTROPHILS # (AUTO) 0.5 x10^3/uL (2.2-4.8); NEUTROPHILS % (AUTO) 35.6 % (42.0-75.0); PLATELET COUNT 109 X10^3/uL (150.0-450.0); RED BLOOD COUNT 2.27 X10^6/uL (3.5-5.4); RED CELL DISTRIBUTION WIDTH 17.2 % (11.6-16.5)
--- NOTE | 2020-09-21 06:16 | RAD ---
HISTORYPLEURAL EFFUSIONSTUDYCHEST, 1 VIEWCOMPARISONOne day priorTECHNIQUEAP view of the chestFINDINGSRight chest wall port with tip in good position. Cardiac and mediastinal contours appear stable prominent right hilum. Patchy left medial base opacity. Suspect small pleural effusions. No pneumothorax. Stable left apical opacity.IMPRESSIONPatchy left medial base opacity may represent atelectasis or pneumonia. Blunted costophrenic sulci consistent with small pleural effusions. Stable left apical opacity. Stable prominent right hilum.Electronically signed by: Josh Jaquez (Sep 21, 2020 06:15:31)
[2020-09-21 06:17] LABS: ALANINE AMINOTRANSFERASE 89 Units/L (12-78); ALBUMIN 2.5 g/dL (3.4-5.0); ALKALINE PHOSPHATASE 93 Units/L (46-116); ASPARTATE AMINO TRANSFERASE 42 Units/L (15-37); BLOOD UREA NITROGEN 5 mg/dL (7-18); CALCIUM 8.5 mg/dL (8.5-10.1); CARBON DIOXIDE 25.8 mmol/L (21-32); CHLORIDE 107 mmol/L (98-107); COR CA(FOR HYPOALB) 9.7 mg/dL (8.5-10.1); CREATININE 0.73 mg/dL (0.55-1.02); MAGNESIUM 1.7 mg/dL (1.7-2.9); SODIUM 141 mmol/L (136-145); TOTAL PROTEIN 5.7 g/dL (6.4-8.2); eGFR NON BLACK RACES > 60 (>60)
[2020-09-21 06:29] LABS: WHITE BLOOD COUNT 1.5 X10^3/uL (3.6-10.0)
[2020-09-21 06:30] LABS: HEMOGLOBIN 6.7 g/dL (12.0-16.0)
[2020-09-21] MEDS: NS 1000 ML 1,000 ML IV SCH ×3 (06:30→21:13)
[2020-09-21 06:31] LABS: HEMATOCRIT 19.8 % (36.0-47.0)
[2020-09-21 06:48] LABS: PLATELET MORPHOLOGY COMMENT NORMAL (NORMAL)
[2020-09-21 06:49] LABS: ANISOCYTOSIS SLIGHT; HYPOCHROMASIA 1+
[2020-09-21] MEDS: VITAMIN D3 125 mcg (5,000 UNITS) PO SCH (08:39)
[2020-09-21] MEDS: FOLIC ACID TAB 1 MG PO SCH (08:39)
[2020-09-21] MEDS: PLAVIX PO SCH (08:39)
[2020-09-21] MEDS: PROTONIX TAB 40 MG PO SCH ×2 (08:40→20:58)
[2020-09-21] MEDS: LEVAQUIN PREMIX IV 500 MG 500 MG/100 ML BAG IV SCH (08:40)
[2020-09-21] MEDS: VITAMIN C PO SCH (08:40)
[2020-09-21 08:58] LABS: CKMB % 0.7 % (<4); CREATINE KINASE 137 Units/L (26-192); CREATINE KINASE MB < 1.0 ng/mL (0-4.0)
[2020-09-21] MEDS ORDERED: NS 250 ML IV 250 ML IV ONE (11:34)
[2020-09-21] MEDS: TYLENOL 325 MG TAB PO PRN (13:40)
[2020-09-21] MEDS ORDERED: NS 500 ML IV 0 ML IV ONE (14:07)
[2020-09-21 18:30] LABS: HEMATOCRIT 26.4 % (36.0-47.0); HEMOGLOBIN 8.8 g/dL (12.0-16.0)
[2020-09-21] MEDS: ZOCOR TAB 20 MG PO SCH (20:58)
[2020-09-21] MEDS: ROBITUSSIN DM PO PRN (23:19)
[2020-09-22] MEDS: NS 1000 ML 1,000 ML IV SCH ×2 (04:58→05:50)
[2020-09-22 06:22] LABS: BASOPHILS % (AUTO) 0.3 % (0.2-1.0); EOSINOPHILS # (AUTO) 0.1 x10^3/uL (0.0-0.2); EOSINOPHILS % (AUTO) 4.3 % (0.9-2.9); HEMOGLOBIN 8.9 g/dL (12.0-16.0); LYMPHOCYTES # (AUTO) 0.6 X10^3/uL (1.3-2.9); LYMPHOCYTES % (AUTO) 27.6 % (21.0-51.0); MEAN CORPUSCULAR HEMOGLOBIN 29.1 pg (27.0-34.0); MEAN CORPUSCULAR HGB CONC 34.1 g/dL (33.0-35.0); MEAN CORPUSCULAR VOLUME 85.5 fL (80.0-100.0); MEAN PLATELET VOLUME 7.6 fL (7.4-11.0); MONOCYTES # (AUTO) 0.5 x10^3/uL (0.3-0.8); MONOCYTES % (AUTO) 23.1 % (0.0-13.0); NEUTROPHILS % (AUTO) 44.7 % (42.0-75.0); PLATELET COUNT 152 X10^3/uL (150.0-450.0); RED BLOOD COUNT 3.04 X10^6/uL (3.5-5.4); RED CELL DISTRIBUTION WIDTH 15.9 % (11.6-16.5); WHITE BLOOD COUNT 2.3 X10^3/uL (3.6-10.0)
[2020-09-22 07:13] LABS: BAND NEUTROPHILS % 1 % (0-10); PLATELET MORPHOLOGY COMMENT NORMAL (NORMAL)
[2020-09-22 07:14] LABS: HYPOCHROMASIA SLIGHT
[2020-09-22 07:29] LABS: ALANINE AMINOTRANSFERASE 74 Units/L (12-78); ALBUMIN 2.6 g/dL (3.4-5.0); ALKALINE PHOSPHATASE 94 Units/L (46-116); ASPARTATE AMINO TRANSFERASE 37 Units/L (15-37); BLOOD UREA NITROGEN 4 mg/dL (7-18); CALCIUM 8.4 mg/dL (8.5-10.1); CARBON DIOXIDE 25.8 mmol/L (21-32); CHLORIDE 108 mmol/L (98-107); COR CA(FOR HYPOALB) 9.5 mg/dL (8.5-10.1); SODIUM 143 mmol/L (136-145); eGFR NON BLACK RACES > 60 (>60)
[2020-09-22] MEDS: PLAVIX PO SCH (09:31)
[2020-09-22] MEDS: VITAMIN D3 125 mcg (5,000 UNITS) PO SCH (09:31)
[2020-09-22] MEDS: VITAMIN C PO SCH (09:31)
[2020-09-22] MEDS: FOLIC ACID TAB 1 MG PO SCH (09:31)
[2020-09-22] MEDS: PROTONIX TAB 40 MG PO SCH (09:32)
[2020-09-22] MEDS: LEVAQUIN PREMIX IV 500 MG 500 MG/100 ML BAG IV SCH (09:32)
[2020-09-22 14:08] VITALS: BP 148/74
== END 2020-09-22 14:15 | disposition home or self-care (01) | DRG 871 ==
LOC: ER 23:54 → ICU 23:54 → OBSVTOIN 09-18 06:02 → MED/SURG 09-18 09:40
PROVIDERS: ADMIT Internal Medicine; ATTEND Internal Medicine
DX: C34.90 Malignant neoplasm of unspecified part of unspecified bronchus or lung; E86.0 Dehydration; N39.0 Urinary tract infection, site not specified; D70.3 Neutropenia due to infection; R26.89 Other abnormalities of gait and mobility; Z92.21 Personal history of antineoplastic chemotherapy; B96.29 Other Escherichia coli [E. coli] as the cause of diseases classified elsewhere; J44.9 Chronic obstructive pulmonary disease, unspecified; I95.89 Other hypotension; Z20.828 Contact with and (suspected) exposure to other viral communicable diseases; E78.2 Mixed hyperlipidemia; I10 Essential (primary) hypertension; D61.810 Antineoplastic chemotherapy induced pancytopenia; Z85.3 Personal history of malignant neoplasm of breast; D63.8 Anemia in other chronic diseases classified elsewhere; A41.51 Sepsis due to Escherichia coli [E. coli]

== ENCOUNTER 2021-03-09 18:59 | Inpatient (IN) ==
[2021-03-09] MEDS ORDERED: NS 1000 ML 1,000 ML IV ONE (19:49)
[2021-03-09] MEDS ORDERED: ROCEPHIN VIAL 1 GRAM 1 G in NS 100 ML IV + SPIKE MINIBAG* 100 ML IV ONE (19:51)
[2021-03-09] MEDS ORDERED: VANCOMYCIN IV *PREMIX 1 G/200 ML BAG 1 G/200 ML PIGGYBACK IV ONE ×2 (19:51→19:59)
[2021-03-09] MEDS ORDERED: ROCEPHIN VIAL 1 GRAM ONE (19:58)
[2021-03-09] MEDS ORDERED: NS 1000 ML 1,000 ML ONE (19:58)
[2021-03-09] MEDS ORDERED: NS 100 ML IV + SPIKE MINIBAG* 100 ML IV ONE (19:58)
--- NOTE | 2021-03-09 20:23 | DR.DIZZY ---
HPI Time seen Time Seen by Provider: 03/09/21 19:49 PCP Primary Care Physician: HPI Comment HPI Comment: Patient brought in by family with complaint of malaise, fever and diarrhea x 2 days. patient with h/o lung cancer and is on chemo. Last chemo was last week. Family states that patient usually doesn't feel well for the first few days after chemo, but usually recovers. Notes that this time, she has continued to feel ill. No known sick contacts. Family notes that patient had fever earlier of 102.7. Given anti-pyretic. Complaint Chief Complaint:: PT STATED SHE HAS FEVER, DEHYDRATION,AND DIARRHEA. Self Treatment fo Chief Complaint: TYLENOL 500MG 545 COVID-19 Coronavirus risk:travel/contact w/high risk person: No Has patient experienced Coronavirus symptoms: Yes Coronavirus symptoms experienced: Fever Source History Provided: Family Member Mode of Arrival Mode of Arrival: Wheelchair Timing Onset of Chief Complaint: 03/09/21 Context Stroke Symptoms: None PMH PMH Past Medical History: Yes Past Medical History: Arthritis, COPD, Coronary Artery Disease, Dyslipidemia, GERD and Hypertension Past Medical History Comment: LUNG CANCER Past Surgical History: Yes Surgical History: Angioplasty/Stents Past Surgical History Comment: KNEE AND PORT , LYMPNODE SURGERY Family History History of Family Medical Conditions: Yes Family Medical History: Cancer, [place], Coronary Artery Disease and Hypertension Social History Type of Tobacco Use: Cigarettes Do you use any recreational Drugs:: No Lives With: Family Lives Where: Home Travel Risk Coronavirus risk:travel/contact w/high risk person: No Has patient experienced Coronavirus symptoms: Yes Coronavirus symptoms experienced: Fever Infectious screening In the last 2 months have you had wt loss of >10#?: NO Have you had fever, night sweats or hemotysis?: No Have you traveled outside the country in the last 6 months?: No Isolation: Droplet ROS Review of Systems Constitutional: See HPI, Fever, Malaise and Weakness Gastrointestinal/Abdominal: Diarrhea All Other Systems: Reviewed and Negative PE Vital Signs Vitals: Temperature 98.2 F Pulse Rate 83 Respiratory Rate 18 Blood Pressure [Right Arm] 148/74 Blood Pressure 86/54 O2 Sat by Pulse Oximetry 96 General Limitations: No Limitations General Appearance: Alert and In No Apparent Distress Head Head Exam: Normal Inspection, Atraumatic and Normocephalic Eyes Eye exam: Normal Appearance and EOMI ENT ENT Exam: Normal Exam Neck Neck Exam: Normal Inspection and Trachea Midline Chest Chest Inspection: Normal Inspection Respiratory Respiratory Exam: Normal Lung Sounds Bilat Respiratory Exam: Bilateral: Clear to Auscultation Cardiovascular Cardiovascular Exam: Regular Rate, Normal Rhythm and Normal Heart Sounds Abdominal Exam Abdominal Exam: Normal Inspection, Normal Bowel Sounds and Soft Extremeties Extremities Exam: Normal Inspection Neurologic Neurological Exam: Alert and Oriented X3 Psychiatric Psychiatric Exam: Normal Affect and Normal Mood Skin Skin Exam: Warm, Dry and Intact COURSE Consultation Call Returned: 00:00 Consultation Comments: Spoke with Dr. Zamora who accepts aptient for admission ROR Labs Reviewed Laboratory Results Reviewed?: Yes Result Diagrams: 03/09/21 20:05 03/09/21 20:05 Laboratory: WBC 2.7 X10^3/uL (3.6-10.0) L 03/09/21 20:05 RBC 3.53 X10^6/uL (3.5-5.4) 03/09/21 20:05 Hgb 10.2 g/dL (12.0-16.0) L 03/09/21 20:05 Hct 31.5 % (36.0-47.0) L 03/09/21 20:05 MCV 89.2 fL (80.0-100.0) 03/09/21 20:05 MCH 28.9 pg (27.0-34.0) 03/09/21 20:05 MCHC 32.4 g/dL (33.0-35.0) L 03/09/21 20:05 RDW 18.4 % (11.6-16.5) H 03/09/21 20:05 Plt Count 266 X10^3/uL (150.0-450.0) 03/09/21 20:05 Plt Count Comment Adequate (ADEQUATE) 03/09/21 20:05 MPV 7.9 fL (7.4-11.0) 03/09/21 20:05 Neut % (Auto) 38.2 % (42.0-75.0) L 03/09/21 20:05 Lymph % (Auto) 18.9 % (21.0-51.0) L 03/09/21 20:05 [place] % (Auto) 42.4 % (0.0-13.0) H 03/09/21 20:05 Eos % (Auto) 0.0 % (0.9-2.9) L 03/09/21 20:05 Baso % (Auto) 0.5 % (0.2-1.0) 03/09/21 20:05 Neut # (Auto) 1.0 x10^3/uL (2.2-4.8) L 03/09/21 20:05 Lymph # (Auto) 0.5 X10^3/uL (1.3-2.9) L 03/09/21 20:05 [place] # (Auto) 1.2 x10^3/uL (0.3-0.8) H 03/09/21 20:05 Eos # (Auto) 0.0 x10^3/uL (0.0-0.2) 03/09/21 20:05 Baso # (Auto) 0.0 X10^3/uL (0.0-0.1) 03/09/21 20:05 Absolute Nucleated RBC 0.6 /100WBC 03/09/21 20:05 Total Counted 100 03/09/21 20:05 Neutrophils % (Manual) 43 % (39-76) 03/09/21 20:05 Lymphocytes % (Manual) 30 % (13-43) 03/09/21 20:05 Monocytes % (Manual) 22 % (4-9) H 03/09/21 20:05 Metamyelocytes % 2 03/09/21 20:05 Myelocytes % 3 03/09/21 20:05 Plt Morphology Comment Normal (NORMAL) 03/09/21 20:05 RBC Morphology Normal (NORMAL) 03/09/21 20:05 Sodium 136 mmol/L (136-145) 03/09/21 20:05 Corrected Sodium TNP 03/09/21 20:05 Potassium 3.8 mmol/L (3.5-5.1) 03/09/21 20:05 Chloride 100 mmol/L (98-107) 03/09/21 20:05 Carbon Dioxide 24.2 mmol/L (21-32) 03/09/21 20:05 BUN 16 mg/dL (7-18) 03/09/21 20:05 Creatinine 1.18 mg/dL (0.55-1.02) H 03/09/21 20:05 Est GFR (MDRD) Af Amer 57 (>60) L 03/09/21 20:05 Est GFR (MDRD) Non-Af 47 (>60) L 03/09/21 20:05 Glucose 86 mg/dL (65-99) 03/09/21 20:05 Lactic Acid 1.3 mmol/L (0.4-2.0) 03/09/21 20:05 Calcium 8.7 mg/dL (8.5-10.1) 03/09/21 20:05 Corrected Calcium 9.7 mg/dL (8.5-10.1) 03/09/21 20:05 Total Bilirubin 0.50 mg/dL (0.2-1.0) 03/09/21 20:05 AST 17 Units/L (15-37) 03/09/21 20:05 ALT 16 Units/L (12-78) 03/09/21 20:05 Alkaline Phosphatase 63 Units/L (46-116) 03/09/21 20:05 Total Protein 6.5 g/dL (6.4-8.2) 03/09/21 20:05 Albumin 2.8 g/dL (3.4-5.0) L 03/09/21 20:05 Globulin 3.7 g/dL (2.5-4.5) 03/09/21 20:05 Albumin/Globulin Ratio 0.8 Ratio (1.1-2.1) L 03/09/21 20:05 Influenza Type A Ag Negative-presumptive (NEGATIVE) 03/09/21 20:31 Influenza Type B Ag Negative-presumptive (NEGATIVE) 03/09/21 20:31 SARS CoV-2 RNA Rapid MONA Negative (NEGATIVE) 03/09/21 20:31 XRAY X-ray Results: STUDY: FRONTAL VIEW CHEST COMPARISON: 09/21/2020 HISTORY: FEVER, HX LUNG CA FINDINGS: Right chemotherapy port is again seen and does not appear significantly changed from the prior study. Interval development of scattered alveolar airspace disease seen in the left lower lung zone. Subsegmental atelectasis is noted. Diffuse COPD/emphysema is noted. The heart size is within normal limits. The mediastinum is unremarkable. There is no evidence of pleural effusion or gross pneumothorax. The trachea is midline. IMPRESSION: 1. Progressively worsening patchy alveolar airspace disease is seen in the left lower lung zone. Electronically signed by: Cr Saucedo (March 09, 2021 20:44:21) Opioid Opioid Risk Tool Age (Cory box if 16-45): No History of Preadolescent Sexual Abuse: No Total: 0 Total Score Risk Category: Low Risk Copyright: Dilan FLORES predicting aberrant behaviors Diagnosis Discharge Problem: Pancytopenia, Fever in adult Neutropenia Qualifiers: Neutropenia type: secondary to cancer chemotherapy Qualified Code(s): D70.1 - Agranulocytosis secondary to cancer chemotherapy Pneumonia Qualifiers: Pneumonia type: due to unspecified organism Laterality: left Lung location: lower lobe of lung Qualified Code(s): J18.9 - Pneumonia, unspecified organism
[2021-03-09 20:36] LABS: BASOPHILS % (AUTO) 0.5 % (0.2-1.0); HEMATOCRIT 31.5 % (36.0-47.0); HEMOGLOBIN 10.2 g/dL (12.0-16.0); LYMPHOCYTES # (AUTO) 0.5 X10^3/uL (1.3-2.9); LYMPHOCYTES % (AUTO) 18.9 % (21.0-51.0); MEAN CORPUSCULAR HEMOGLOBIN 28.9 pg (27.0-34.0); MEAN CORPUSCULAR HGB CONC 32.4 g/dL (33.0-35.0); MEAN CORPUSCULAR VOLUME 89.2 fL (80.0-100.0); MEAN PLATELET VOLUME 7.9 fL (7.4-11.0); MONOCYTES # (AUTO) 1.2 x10^3/uL (0.3-0.8); MONOCYTES % (AUTO) 42.4 % (0.0-13.0); NEUTROPHILS % (AUTO) 38.2 % (42.0-75.0); PLATELET COUNT 266 X10^3/uL (150.0-450.0); RED BLOOD COUNT 3.53 X10^6/uL (3.5-5.4); RED CELL DISTRIBUTION WIDTH 18.4 % (11.6-16.5); WHITE BLOOD COUNT 2.7 X10^3/uL (3.6-10.0)
--- NOTE | 2021-03-09 20:46 | RAD ---
STUDY: FRONTAL VIEW CHESTCOMPARISON: 09/21/2020HISTORY: FEVER, HX LUNG CAFINDINGS:Right chemotherapy port is again seen and does not appear significantly changed from the prior study.Interval development of scattered alveolar airspace disease seen in the left lower lung zone.Subsegmental atelectasis is noted.Diffuse COPD/emphysema is noted.The heart size is within normal limits.The mediastinum is unremarkable.There is no evidence of pleural effusion or gross pneumothorax.The trachea is midline.IMPRESSION:1. Progressively worsening patchy alveolar airspace disease is seen in the left lower lung zone.Electronically signed by: Cr Saucedo (March 09, 2021 20:44:21)
[2021-03-09 20:48] LABS: ALANINE AMINOTRANSFERASE 16 Units/L (12-78); ALBUMIN 2.8 g/dL (3.4-5.0); ALKALINE PHOSPHATASE 63 Units/L (46-116); ASPARTATE AMINO TRANSFERASE 17 Units/L (15-37); BLOOD UREA NITROGEN 16 mg/dL (7-18); CALCIUM 8.7 mg/dL (8.5-10.1); CARBON DIOXIDE 24.2 mmol/L (21-32); CHLORIDE 100 mmol/L (98-107); COR CA(FOR HYPOALB) 9.7 mg/dL (8.5-10.1); CREATININE 1.18 mg/dL (0.55-1.02); SODIUM 136 mmol/L (136-145); TOTAL PROTEIN 6.5 g/dL (6.4-8.2); eGFR NON BLACK RACES 47 (>60)
[2021-03-09 20:53] LABS: LACTIC ACID 1.3 mmol/L (0.4-2.0)
[2021-03-09 20:55] LABS: METAMYELOCYTES % 2; MYELOCYTES % 3; PLATELET MORPHOLOGY COMMENT NORMAL (NORMAL)
[2021-03-10] MEDS ORDERED: TUSSIONEX PENNKINETIC SUSP PO PRN (00:01)
[2021-03-10] MEDS ORDERED: NS 1/2 1000 ML IV 1,000 ML IV ONE ×2 (00:51→14:33)
[2021-03-10] MEDS: NS 1/2 1000 ML IV 1,000 ML IV SCH ×2 (00:58→14:38)
[2021-03-10] MEDS ORDERED: SALINE 3% 15 ML NEB TX ONE (05:11)
[2021-03-10] MEDS ORDERED: SALINE 3% 15 ML NEB TX NEB ONE (05:18)
[2021-03-10] MEDS: ROBITUSSIN DM PO SCH ×5 (05:55→20:20)
--- NOTE | 2021-03-10 06:20 | RAD ---
HISTORYFever pneumoniaSTUDYPortable AP [id number]/2021FINDINGSHeart size is stable, upper-normal. No significant change in the bilateral interstitial infiltrates. No localized consolidation identified. Stable position of right subclavian port. Persistent prominence of the right hilar complex and mediastinum consistent with adenopathy.IMPRESSIONNo new abnormality or significant interval change since 1 day earlier. Bilateral infiltrates may represent a diffuse inflammatory process although, with the right hilar mass and mediastinal adenopathy, possibility of metastatic lung disease should be considered.Electronically signed by: LISA CANNON (March 10, 2021 06:18:58)
[2021-03-10 06:26] LABS: BILIRUBIN,URINE NEGATIVE (NEGATIVE); BLOOD/HEMOGLOBIN,URINE NEGATIVE (NEGATIVE); GLUCOSE, URINE NEGATIVE (NEGATIVE); KETONES,URINE NEGATIVE (NEGATIVE); LEUKOCYTE ESTERASE ,URINE NEGATIVE (NEGATIVE); NITRITES,URINE NEGATIVE (NEGATIVE); PROTEIN,URINE 1+ (NEGATIVE); UROBILINOGEN,URINE NORMAL (NORMAL)
[2021-03-10 06:33] LABS: APPEARANCE,URINE CLEAR (CLEAR); COLOR,URINE YELLOW (YELLOW)
[2021-03-10 06:34] LABS: BACTERIA,URINE TRACE /HPF (NEGATIVE); HYALINE CASTS, URINE FEW /LPF (NEGATIVE); RBC,URINE NONE SEEN /HPF (0-3); SQUAMOUS EPITHELIAL CELL,UR FEW /HPF (NEGATIVE)
[2021-03-10] MEDS: PROVENTIL NEB TX 0.083% 2.5MG/ 3ML NEB SCH ×5 (08:34→20:20)
[2021-03-10] MEDS: LEVAQUIN PREMIX IV 750 MG 750 MG/150 ML BAG IV SCH (09:22)
[2021-03-10] MEDS ORDERED: ZOFRAN TAB 4 MG PO PRN (11:06)
--- NOTE | 2021-03-10 11:11 | DR.H&P ---
H&P - History & Physical for Day of: H&P Date: 03/10/21 - Chief Complaint Chief Complaint: weakness, sob, diarrhea, dehydration - History of Present Illness History of Present Illness: PT IS 80 WF ER ADMISSION WITH CO WEAKNESS AND SOB. PT IS CURRENTLY UNDER GOING CHEMO FOR LUNG CANCER. PT HAS HAD DIARRHEA IN INCREASED WEAKNESS AND SOB. PTCXR ON ADMISSION REVEALED PNEUMONIA. PT HAS REPORTED FEVER BRIM CURLER. PT HAS PMH OF LUNG CA, COPD, CAD, HTN, OA. PT ADMITTED FOR TREATMENT OF ACUTE ILLNESS. - Past Medical History Past Medical History: Coronary Artery Disease, Hypertension, Dyslipidemia, COPD, GERD, Arthritis - Past Surgical History Surgical History: Angioplasty/Stents, Mastectomy, Ortho Surgery, Other - Family History Family Medical History: Cancer, [place], Coronary Artery Disease, Hypertension - Social History Does patient currently use any type of tobacco product: Yes Have you used tobacco products in the last 12 months: Yes Type of Tobacco Use: Cigarettes Alcohol Use: None Drug Use: None - Medications Home Medications: Sulfa (Sulfonamide Antibiotics) [SULFA] Allergy (Verified 09/18/20 00:10) Penicillins Adverse Reaction (Verified 09/18/20 00:10) CONTINUE taking the following medications albuterol sulfate [Ventolin HFA] 1 puff INHALATION Q4H 03/10/21 [History] aspirin 81 mg PO Q OTHER DAY 03/10/21 [History] - Review of Systems Constitutional: Fever, Weakness Eyes: No Symptoms Reported ENT: No Symptoms Reported Respiratory: Shortness of Breath, SOB with Excertion, Wheezing Cardiovascular: No Symptoms Reported Gastrointestinal: Nausea, Diarrhea Genitourinary: No Symptoms Reported Musculoskeletal: No Symptoms Reported Skin: No Symptoms Reported Neurological: Weakness - Physical Exam Vital Signs: Temperature 98.2 F Pulse Rate [Left] 76 Pulse Rate 85 Respiratory Rate 18 Blood Pressure [Right Arm] 113/58 Blood Pressure 94/59 O2 Sat by Pulse Oximetry 95 Oriented: Normal Eyes: Normal Ear: Normal Nose: Normal Throat: Normal Respiratory: Diminished Throughout Cardiovascular: Normal : Normal Auscultation: Bowel Sounds: Normal Palpation: Normal Tenderness: Diffuse, Mild Skin: Decreased Turgur Musculoskeletal: Back:Lumbar Psychiatric: Anxiety Affect: Anxious Speech Pattern: Clear, Appropriate - Assessment/Plan (1) Pneumonia Qualifiers: Pneumonia type: due to unspecified organism Laterality: left Lung location: lower lobe of lung Qualified Code(s): J18.9 - Pneumonia, unspecified organism Status: Acute Plan: ADMIT, RESP CONSULT. BLOOD AND SPUTUM CULTURE ON ADMISSION. REPEAT AM CXR, DUO NEBS AND SUPPLEMENTAL O2. IV HYDRATION, AM LABS (2) Acute dehydration Status: Acute (3) COPD (chronic obstructive pulmonary disease) Status: Acute (4) CAD (coronary artery disease) Status: Acute - Allergies Allergies/Adverse Reactions: Allergies Allergy/AdvReac Type Severity Reaction Status Date / Time Sulfa (Sulfonamide Allergy Verified 09/18/20 00:10 Antibiotics) [SULFA] Penicillins AdvReac Verified 09/18/20 00:10
[2021-03-10] MEDS: PROTONIX TAB 40 MG PO SCH (20:19)
[2021-03-10 22:58] VITALS: BMI 20.5
[2021-03-11] MEDS ORDERED: NS 1/2 1000 ML IV 1,000 ML IV ONE ×2 (03:42→15:23)
[2021-03-11] MEDS: NS 1/2 1000 ML IV 1,000 ML IV SCH ×3 (04:30→20:50)
[2021-03-11 06:18] LABS: BASOPHILS # (AUTO) 0.1 X10^3/uL (0.0-0.1); BASOPHILS % (AUTO) 1.1 % (0.2-1.0); EOSINOPHILS % (AUTO) 0.1 % (0.9-2.9); HEMATOCRIT 24.8 % (36.0-47.0); LYMPHOCYTES # (AUTO) 1.3 X10^3/uL (1.3-2.9); LYMPHOCYTES % (AUTO) 17.1 % (21.0-51.0); MEAN CORPUSCULAR HEMOGLOBIN 29.1 pg (27.0-34.0); MEAN CORPUSCULAR HGB CONC 33.2 g/dL (33.0-35.0); MEAN CORPUSCULAR VOLUME 87.6 fL (80.0-100.0); MEAN PLATELET VOLUME 7.9 fL (7.4-11.0); MONOCYTES # (AUTO) 0.9 x10^3/uL (0.3-0.8); MONOCYTES % (AUTO) 11.2 % (0.0-13.0); NEUTROPHILS # (AUTO) 5.5 x10^3/uL (2.2-4.8); NEUTROPHILS % (AUTO) 70.5 % (42.0-75.0); PLATELET COUNT 257 X10^3/uL (150.0-450.0); RED BLOOD COUNT 2.83 X10^6/uL (3.5-5.4); RED CELL DISTRIBUTION WIDTH 18.8 % (11.6-16.5); WHITE BLOOD COUNT 7.8 X10^3/uL (3.6-10.0)
[2021-03-11 06:24] LABS: HEMOGLOBIN 8.2 g/dL (12.0-16.0)
[2021-03-11 06:33] LABS: ALANINE AMINOTRANSFERASE 15 Units/L (12-78); ALBUMIN 2.2 g/dL (3.4-5.0); ALKALINE PHOSPHATASE 49 Units/L (46-116); ASPARTATE AMINO TRANSFERASE 16 Units/L (15-37); BLOOD UREA NITROGEN 8 mg/dL (7-18); CARBON DIOXIDE 24.5 mmol/L (21-32); CHLORIDE 105 mmol/L (98-107); COR CA(FOR HYPOALB) 9.4 mg/dL (8.5-10.1); CREATININE 0.76 mg/dL (0.55-1.02); SODIUM 140 mmol/L (136-145); TOTAL PROTEIN 5.4 g/dL (6.4-8.2); eGFR NON BLACK RACES > 60 (>60)
[2021-03-11] MEDS ORDERED: K-RIDER 10 MEQ/NS 100 ML 10 MEQ/100 ML BAG IV PRN (07:46)
[2021-03-11] MEDS ORDERED: POTASSIUM CHLORIDE LIQ 20 MEQ UDC PO PRN (07:46)
[2021-03-11] MEDS ORDERED: POTASSIUM CHL 40 MEQ/NS 0.45% 500 ML IV PRN (07:46)
[2021-03-11] MEDS ORDERED: POTASSIUM CHL 60 MEQ/NS 0.45% 500 ML IV PRN (07:46)
[2021-03-11] MEDS ORDERED: KLOR-CON PO PRN (07:46)
[2021-03-11] MEDS ORDERED: MICRO K EXTEN CAP 10 MEQ PO PRN (07:46)
[2021-03-11] MEDS: PROTONIX TAB 40 MG PO SCH ×2 (08:41→20:53)
[2021-03-11] MEDS: PLAVIX PO SCH (08:41)
[2021-03-11] MEDS: ZOCOR TAB 20 MG PO SCH (08:41)
[2021-03-11] MEDS: K-DUR TAB 20 MEQ PO PRN (08:42)
[2021-03-11] MEDS: ROBITUSSIN DM PO SCH ×4 (08:43→20:53)
[2021-03-11] MEDS: PROVENTIL NEB TX 0.083% 2.5MG/ 3ML NEB SCH ×4 (08:58→20:00)
[2021-03-11] MEDS: MAGNESIUM SULFATE 1 GRAM/100 mL PREMIX 1 GM/100 ML BAG IV PRN (23:47)
[2021-03-12] MEDS: MAGNESIUM SULFATE 1 GRAM/100 mL PREMIX 1 GM/100 ML BAG IV PRN (00:49)
[2021-03-12] MEDS ORDERED: NS 1/2 1000 ML IV 1,000 ML IV ONE ×2 (06:22→22:54)
[2021-03-12] MEDS: NS 1/2 1000 ML IV 1,000 ML IV SCH ×3 (06:28→23:05)
[2021-03-12 06:48] LABS: BASOPHILS # (AUTO) 0.1 X10^3/uL (0.0-0.1); EOSINOPHILS % (AUTO) 0.2 % (0.9-2.9); HEMATOCRIT 25.8 % (36.0-47.0); HEMOGLOBIN 8.7 g/dL (12.0-16.0); LYMPHOCYTES # (AUTO) 1.1 X10^3/uL (1.3-2.9); LYMPHOCYTES % (AUTO) 14.9 % (21.0-51.0); MEAN CORPUSCULAR HEMOGLOBIN 29.2 pg (27.0-34.0); MEAN CORPUSCULAR HGB CONC 33.6 g/dL (33.0-35.0); MEAN PLATELET VOLUME 7.7 fL (7.4-11.0); MONOCYTES # (AUTO) 0.7 x10^3/uL (0.3-0.8); MONOCYTES % (AUTO) 10.3 % (0.0-13.0); NEUTROPHILS # (AUTO) 5.2 x10^3/uL (2.2-4.8); NEUTROPHILS % (AUTO) 73.6 % (42.0-75.0); PLATELET COUNT 267 X10^3/uL (150.0-450.0); RED BLOOD COUNT 2.96 X10^6/uL (3.5-5.4); RED CELL DISTRIBUTION WIDTH 18.9 % (11.6-16.5); WHITE BLOOD COUNT 7.1 X10^3/uL (3.6-10.0)
[2021-03-12 07:05] LABS: ALANINE AMINOTRANSFERASE 16 Units/L (12-78); ALBUMIN 2.3 g/dL (3.4-5.0); ALKALINE PHOSPHATASE 54 Units/L (46-116); ASPARTATE AMINO TRANSFERASE 20 Units/L (15-37); BLOOD UREA NITROGEN 3 mg/dL (7-18); CALCIUM 8.2 mg/dL (8.5-10.1); CHLORIDE 105 mmol/L (98-107); COR CA(FOR HYPOALB) 9.6 mg/dL (8.5-10.1); CREATININE 0.71 mg/dL (0.55-1.02); MAGNESIUM 2.4 mg/dL (1.7-2.9); SODIUM 137 mmol/L (136-145); TOTAL PROTEIN 5.4 g/dL (6.4-8.2); eGFR NON BLACK RACES > 60 (>60)
--- NOTE | 2021-03-12 07:33 | RAD ---
HISTORYPNEUMONIASTUDYCHEST, 1 [id number]/2021.TECHNIQUEAP view of the chestFINDINGSRight chest wall port with tip in good position. Cardiac and mediastinal contours appear stable with known right hilar mass. Stable bilateral diffuse interstitial opacities. The lungs are hyperexpanded. No definite pleural effusion or pneumothorax.IMPRESSIONNo significant change. Known right hilar mass.Electronically signed by: Josh Jaquez (March 12, 2021 07:31:31)
[2021-03-12] MEDS: PROVENTIL NEB TX 0.083% 2.5MG/ 3ML NEB SCH ×4 (08:59→21:34)
[2021-03-12] MEDS: ROBITUSSIN DM PO SCH ×5 (09:15→20:47)
[2021-03-12] MEDS: ZOCOR TAB 20 MG PO SCH (09:15)
[2021-03-12] MEDS: PROTONIX TAB 40 MG PO SCH ×2 (09:15→20:47)
[2021-03-12] MEDS: K-DUR TAB 20 MEQ PO PRN (09:15)
[2021-03-12] MEDS: PLAVIX PO SCH (09:16)
[2021-03-12] MEDS: LEVAQUIN PREMIX IV 750 MG 750 MG/150 ML BAG IV SCH (09:17)
[2021-03-13 06:28] LABS: BASOPHILS % (AUTO) 0.7 % (0.2-1.0); EOSINOPHILS % (AUTO) 0.2 % (0.9-2.9); HEMATOCRIT 27.2 % (36.0-47.0); HEMOGLOBIN 9.1 g/dL (12.0-16.0); LYMPHOCYTES # (AUTO) 0.9 X10^3/uL (1.3-2.9); LYMPHOCYTES % (AUTO) 19.3 % (21.0-51.0); MEAN CORPUSCULAR HEMOGLOBIN 29.2 pg (27.0-34.0); MEAN CORPUSCULAR HGB CONC 33.5 g/dL (33.0-35.0); MEAN CORPUSCULAR VOLUME 87.2 fL (80.0-100.0); MEAN PLATELET VOLUME 7.4 fL (7.4-11.0); MONOCYTES # (AUTO) 0.8 x10^3/uL (0.3-0.8); MONOCYTES % (AUTO) 16.3 % (0.0-13.0); NEUTROPHILS % (AUTO) 63.5 % (42.0-75.0); PLATELET COUNT 258 X10^3/uL (150.0-450.0); RED BLOOD COUNT 3.12 X10^6/uL (3.5-5.4); RED CELL DISTRIBUTION WIDTH 18.9 % (11.6-16.5); WHITE BLOOD COUNT 4.8 X10^3/uL (3.6-10.0)
[2021-03-13 06:49] LABS: ALANINE AMINOTRANSFERASE 18 Units/L (12-78); ALBUMIN 2.4 g/dL (3.4-5.0); ALKALINE PHOSPHATASE 58 Units/L (46-116); ASPARTATE AMINO TRANSFERASE 20 Units/L (15-37); BLOOD UREA NITROGEN 2 mg/dL (7-18); CALCIUM 8.5 mg/dL (8.5-10.1); CARBON DIOXIDE 22.8 mmol/L (21-32); CHLORIDE 107 mmol/L (98-107); COR CA(FOR HYPOALB) 9.8 mg/dL (8.5-10.1); CREATININE 0.74 mg/dL (0.55-1.02); SODIUM 139 mmol/L (136-145); TOTAL PROTEIN 5.7 g/dL (6.4-8.2); eGFR NON BLACK RACES > 60 (>60)
[2021-03-13] MEDS: PLAVIX PO SCH (09:05)
[2021-03-13] MEDS: ZOCOR TAB 20 MG PO SCH (09:06)
[2021-03-13] MEDS: ROBITUSSIN DM PO SCH ×5 (09:06→21:40)
[2021-03-13] MEDS: PROTONIX TAB 40 MG PO SCH ×2 (09:06→20:42)
[2021-03-13] MEDS: PROVENTIL NEB TX 0.083% 2.5MG/ 3ML NEB SCH ×4 (09:10→20:37)
[2021-03-13] MEDS ORDERED: NS 1/2 1000 ML IV 1,000 ML IV ONE (14:15)
[2021-03-13] MEDS: NS 1/2 1000 ML IV 1,000 ML IV SCH (14:20)
[2021-03-14] MEDS: NS 1/2 1000 ML IV 1,000 ML IV SCH (05:05)
[2021-03-14 05:53] LABS: BASOPHILS % (AUTO) 0.9 % (0.2-1.0); EOSINOPHILS % (AUTO) 0.1 % (0.9-2.9); HEMATOCRIT 28.1 % (36.0-47.0); HEMOGLOBIN 9.2 g/dL (12.0-16.0); LYMPHOCYTES # (AUTO) 1.1 X10^3/uL (1.3-2.9); LYMPHOCYTES % (AUTO) 23.8 % (21.0-51.0); MEAN CORPUSCULAR HEMOGLOBIN 28.6 pg (27.0-34.0); MEAN CORPUSCULAR HGB CONC 32.8 g/dL (33.0-35.0); MEAN CORPUSCULAR VOLUME 87.3 fL (80.0-100.0); MEAN PLATELET VOLUME 7.3 fL (7.4-11.0); MONOCYTES # (AUTO) 0.8 x10^3/uL (0.3-0.8); MONOCYTES % (AUTO) 17.5 % (0.0-13.0); NEUTROPHILS # (AUTO) 2.8 x10^3/uL (2.2-4.8); NEUTROPHILS % (AUTO) 57.7 % (42.0-75.0); PLATELET COUNT 265 X10^3/uL (150.0-450.0); RED BLOOD COUNT 3.22 X10^6/uL (3.5-5.4); RED CELL DISTRIBUTION WIDTH 19.3 % (11.6-16.5); WHITE BLOOD COUNT 4.8 X10^3/uL (3.6-10.0)
[2021-03-14 06:10] LABS: ALANINE AMINOTRANSFERASE 16 Units/L (12-78); ALBUMIN 2.5 g/dL (3.4-5.0); ALKALINE PHOSPHATASE 58 Units/L (46-116); ASPARTATE AMINO TRANSFERASE 22 Units/L (15-37); BLOOD UREA NITROGEN 2 mg/dL (7-18); CALCIUM 8.5 mg/dL (8.5-10.1); CARBON DIOXIDE 23.7 mmol/L (21-32); CHLORIDE 106 mmol/L (98-107); COR CA(FOR HYPOALB) 9.7 mg/dL (8.5-10.1); CREATININE 0.75 mg/dL (0.55-1.02); SODIUM 140 mmol/L (136-145); TOTAL PROTEIN 5.7 g/dL (6.4-8.2); eGFR NON BLACK RACES > 60 (>60)
[2021-03-14] MEDS: PROVENTIL NEB TX 0.083% 2.5MG/ 3ML NEB SCH (09:00)
[2021-03-14] MEDS: ZOCOR TAB 20 MG PO SCH (10:00)
[2021-03-14] MEDS: ROBITUSSIN DM PO SCH (10:00)
[2021-03-14] MEDS: PROTONIX TAB 40 MG PO SCH (10:00)
[2021-03-14 10:47] VITALS: BP 146/72
[2021-03-14] MEDS: LEVAQUIN PREMIX IV 750 MG 750 MG/150 ML BAG IV SCH (10:48)
--- NOTE | 2021-03-14 11:25 | RAD ---
HISTORYPNEUMONIA, LUNG CANCERSTUDYCHEST, 1 [id number]/10/2021.TECHNIQUEAP view of the chestFINDINGSRight chest wall port with tip in good position. Right perihilar mass re-demonstrated. Cardiac silhouette normal in size. Blunted costophrenic sulci. Stable bilateral interstitial opacities with background of emphysema.IMPRESSIONNo significant change.Electronically signed by: Josh Jaquez (March 14, 2021 11:23:10)
[2021-03-14] MEDS ORDERED: ILOTYCIN OPHTH OINT AFFEYE SCH (11:59)
[2021-03-14] MEDS ORDERED: VALTREX PO ONE (11:59)
[2021-03-14] MEDS: PLAVIX PO SCH (12:06)
== END 2021-03-14 12:40 | disposition home health service (06) | DRG 194 ==
LOC: ER 19:16 → MED/SURG 03-10 00:01
PROVIDERS: ADMIT Internal Medicine; ATTEND Internal Medicine
DX: I25.810 Atherosclerosis of coronary artery bypass graft(s) without angina pectoris; I10 Essential (primary) hypertension; R53.1 Weakness; J44.9 Chronic obstructive pulmonary disease, unspecified; C34.32 Malignant neoplasm of lower lobe, left bronchus or lung; R06.02 Shortness of breath; E86.0 Dehydration; E78.2 Mixed hyperlipidemia; Z92.21 Personal history of antineoplastic chemotherapy; Z20.822 Contact with and (suspected) exposure to COVID-19; R50.9 Fever, unspecified; J18.8 Other pneumonia, unspecified organism; D70.1 Agranulocytosis secondary to cancer chemotherapy